=== PATIENT | female | born 1985 | race Caucasian/White ===

== ENCOUNTER → 2018-09-20 | Outpatient (CLI) | payer BC ==
[2018-09-20 10:57] LABS: Basophils % (A) 0 %; Eosinophils # (A) 0.1 k/uL (0-0.7); Eosinophils % (A) 1 %; HGB 12.1 gm/dL (11.4-16.0); Lymphocytes # (A) 1.8 k/uL (1.0-4.8); Lymphocytes % (A) 33 %; MCH 28.2 pg (25.0-35.0); MCHC 31.7 g/dL (31.0-37.0); MCV 88.8 fL (80.0-100.0); Mean Platelet Volume 6.7; Monocytes # (A) 0.2 k/uL (0-1.0); Monocytes % (A) 5 %; Neutrophils # (A) 3.2 k/uL (1.3-7.7); Neutrophils % (A) 60 %; Platelet Count 247 k/uL (150-450); RBC 4.28 m/uL (3.80-5.40); RDW 12.8 % (11.5-15.5); WBC 5.4 k/uL (3.8-10.6)
[2018-09-20 12:11] LABS: Erythrocyte Sedimentation Rate 8 mm/hr (0-20)
[2018-09-20 16:21] LABS: Protein, Total 6.5 g/dL (6.2-8.2); Rheumatoid Factor 8 IU/mL (0-15); Streptolysin O Ab(ASO) 60 IU/mL (0-200)
[2018-09-20 16:33] LABS: Cyclic Citrullinated Pep IgG NEGATIVE (NEGATIVE)
[2018-09-20 16:48] LABS: Parathyroid Hormone Intact 61.1 pg/mL (14.0-72.0)
[2018-09-20 17:42] LABS: ALT 15 U/L (8-44); AST 18 U/L (13-35); Albumin/Globulin Ratio 1.91 (1.20-2.10); Alkaline Phosphatase 48 U/L (41-126); C Reactive Protein <0.4 mg/dL (0.0-0.8); Calcium 9.4 mg/dL (8.7-10.3); Carbon Dioxide 25.6 mmol/L (21.6-31.8); Chloride 107 mmol/L (96-109); Creatine Kinase 64 U/L (26-186); Globulin 2.3 g/dL (1.6-3.3); Glucose 93 mg/dL (70-110); LDH 156 U/L (120-246); Phosphorus 2.9 mg/dL (2.4-5.1); Potassium 4.4 mmol/L (3.5-5.5); Sodium 144 mmol/L (135-145); Total Bilirubin 0.5 mg/dL (0.3-1.2); Total Protein 6.7 g/dL (6.2-8.2); Uric Acid 4.2 mg/dL (2.9-7.7)
[2018-09-21 04:19] LABS: Angiotensin-1 Converting Enz. 19 U/L (8-52)
[2018-09-21 11:11] LABS: Lyme IgG/IgM 0.1 Index
[2018-09-21 11:13] LABS: Albumin 3.78 g/dL (3.80-4.90)
[2018-09-21 12:12] LABS: HLA B27 NEGATIVE
[2018-09-21 14:11] LABS: Hepatits C Virus RNA Not detected (Not detected); Hepatits C Virus RNA, Quant <12 IU/mL (<12); LOG HCV IU/mL <1.08 (<1.08)
[2018-09-21 16:32] LABS: Vitamin D, 1, 25-Dihydroxy 56 pg/mL (20 - 79)
[2018-09-24 09:37] LABS: Vit B1(Thiamine) 48 ug/L (38-122)
== END | disposition home or self-care (01) ==
LOC: LABWHC1 09:59
PROVIDERS: ATTEND Physical Medicine & Rehabilitation
DX: R20.2 Paresthesia of skin (principal)
CPT/HCPCS: 36415; 80053; 82164; 82306; 82550; 82553; 82607; 82652; 83516; 83520; 83615; 83970; 84100; 84165; 84207; 84425; 84439; 84443; 84550; 85025; 85652; 86038; 86060; 86140; 86200; 86235; 86431; 86618; 86812; 87522

== ENCOUNTER 2018-10-19 22:58 | Emergency (ER) | payer BC ==
[2018-10-19 23:18] VITALS: BP 128/78; PULSE 89; RESP 16; TEMP 98.3
--- NOTE | 2018-10-19 23:32 | ED ---
General Adult HPI - General Chief complaint: Eye Problems Stated complaint: [facility] Time Seen by Provider: 10/19/18 23:22 Source: patient, RN notes reviewed Mode of arrival: ambulatory Limitations: no limitations - History of Present Illness Initial comments: 33-year-old female presents to the emergency department for a chief complaint of bilateral eye redness. Patient states this started yesterday. Patient states she woke up today and her eyes were crusted shut. Patient states she believes she has pink eye. 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 Patient states she does have minor irritation in the bilateral eyes and is sometimes having a burning pain. She denies any visual changes besides blurry vision when she has a film on her eye. No fevers. No other symptoms. Denies any significant eye pain. No pain with movement of the eyes. Patient has no other complaints at this time including shortness of breath, chest pain, abdominal pain, nausea or vomiting, headache, or visual changes. - Related Data Previous Rx's Medication Instructions Recorded Nitrofurantoin Monohyd/M-Cryst 100 mg PO Q12HR #14 cap 02/26/15 [Macrobid] Phenazopyridine [Pyridium] 200 mg PO TID PRN #6 tablet 02/26/15 Erythromycin Ophth Oint [Romycin 1 applic BOTH EYES QID 7 Days gm 10/19/18 Ophth Oint] Allergies Allergy/AdvReac Type Severity Reaction Status Date / Time latex Allergy Rash/Hives Verified 10/19/18 23:18 Review of Systems ROS Statement: Those systems with pertinent positive or pertinent negative responses have been documented in the HPI. ROS Other: All systems not noted in ROS Statement are negative. Past Medical History Past Medical History: No Reported History History of Any Multi-Drug Resistant Organisms: None Reported Past Surgical History: Section Past Psychological History: No Psychological Hx Reported Smoking Status: Never smoker Past Alcohol Use History: None Reported Past Drug Use History: None Reported General Exam Limitations: no limitations General appearance: alert, in no apparent distress Head exam: Present: atraumatic, normocephalic, normal inspection Eye exam: Present: PERRL, EOMI, conjunctival injection (erythematous conjunctiva to bilateral eyes with purulent drainage). Absent: normal appearance, scleral icterus, nystagmus, periorbital swelling (no edema or erythema to periorbital structures), periorbital tenderness ENT exam: Present: normal exam, mucous membranes moist Neck exam: Present: normal inspection, full ROM. Absent: tenderness, meningismus, lymphadenopathy Respiratory exam: Present: normal lung sounds bilaterally. Absent: respiratory distress, wheezes, rales, rhonchi, stridor Cardiovascular Exam: Present: regular rate, normal rhythm, normal heart sounds. Absent: systolic murmur, diastolic murmur, rubs, gallop, clicks GI/Abdominal exam: Present: soft, normal bowel sounds. Absent: distended, tenderness, guarding, rebound, rigid Neurological exam: Present: alert, oriented X3, CN II-XII intact Psychiatric exam: Present: normal affect, normal mood Course Vital Signs 10/19/18 23:16 Temperature 98.3 F Pulse Rate 89 Respiratory 16 Rate Blood Pressure 128/78 O2 Sat by Pulse 98 Oximetry Medical Decision Making - Medical Decision Making Erythema noted to bilateral conjunctiva. Patient states these crusted earlier today. Burning pain without significant eye pain. No pain extraocular motion. No erythema or edema noted to the periorbital structures. Patient denies any visual changes besides blurriness when she has a film on her eyes. Patient works in a school and is exposed to many children. Patient will be treated with erythromycin ointment. She'll follow up with primary care in 1-2 days. Will return here if she has any worsening symptoms. Disposition Clinical Impression: Conjunctivitis Disposition: HOME SELF-CARE Condition: Good Instructions (If sedation given, give patient instructions): Conjunctivitis (ED ) Additional Instructions: Please use antibiotic ointment as directed. Do not wear contacts. Follow-up with longitudinal float operator in one to 2 days. Return to the emergency department if you have any worsening symptoms. Prescriptions: Erythromycin Ophth Oint [Romycin Ophth Oint] 1 applic BOTH EYES QID 7 Days gm Is patient prescribed a controlled substance at d/c from ED?: No Referrals: Aren Davidson DO [Primary Care Provider] - 1-2 days Aaron Flynn MD [STAFF PHYSICIAN] - 1-2 days Time of Disposition: 23:47
== END 2018-10-19 23:55 | disposition home or self-care (01) ==
LOC: EC 22:58
DX: H10.9 Unspecified conjunctivitis (principal); Z91.040 Latex allergy status
CPT/HCPCS: 99282

== ENCOUNTER 2022-06-11 10:53 | Emergency (ER) | payer BC ==
[2022-06-11] MEDS ORDERED: methylPREDNISolone SOD SUCCI 125 MG/2 ML VIAL IM ONE (11:10)
[2022-06-11] MEDS ORDERED: KETOROLAC 15 MG/ML 1 ML VIAL IVP STA (11:11)
[2022-06-11] MEDS ORDERED: SODIUM CHLORIDE 0.9% 1,000 ML IV STA (11:13)
[2022-06-11] MEDS ORDERED: methylPREDNISolone SOD SUCCI 125 MG/2 ML VIAL IV STA (11:13)
[2022-06-11] MEDS ORDERED: ORPHENADRINE 30 MG/ML 2 ML VIAL IVP STA (11:13)
--- NOTE | 2022-06-11 11:21 | ED ---
Back Pain HPI - General Chief Complaint: Back Pain/Injury Stated Complaint: back pain, congestion Time Seen by Provider: 06/11/22 11:03 Source: patient Limitations: no limitations - History of Present Illness Initial Comments: Patient is an otherwise healthy 36-year-old female who presents to the emergency department with a chief complaint of back pain. Patient states she has had a sinus infection for the past 3 days with fever and productive cough. Patient states she had a coughing fit yesterday while laying in bed which causes a pop in her lower back, inducing significant pain. Patient reports lower back pain with radiation of pain to the bilateral thighs. Twisting of the torso and walking worsens the pain. Taking Motrin, last dose at 4 AM with little relief. She also reports tingling down her bilateral legs. Denies numbness and leg weakness. Denies numbness and tingling in the groin and buttock region. Denies loss of bowel and bladder function. States she has never had an issue with her back before. Denies chest pain and shortness of breath. - Related Data Previous Rx's Medication Instructions Recorded Nitrofurantoin Monohyd/M-Cryst 100 mg PO Q12HR #14 cap 02/26/15 [Macrobid] Phenazopyridine [Pyridium] 200 mg PO TID PRN #6 tablet 02/26/15 Erythromycin Ophth Oint [Romycin 1 applic BOTH EYES QID 7 Days gm 10/19/18 Ophth Oint] Cyclobenzaprine [Flexeril] 5 mg PO BID PRN #10 tablet 06/11/22 Ibuprofen [Motrin] 800 mg PO Q8H PRN #28 tab 06/11/22 predniSONE 50 mg PO DAILY #5 tablet 06/11/22 Allergies Allergy/AdvReac Type Severity Reaction Status Date / Time latex Allergy Rash/Hives Verified 06/11/22 10:56 Review of Systems ROS Statement: Those systems with pertinent positive or pertinent negative responses have been documented in the HPI. ROS Other: All systems not noted in ROS Statement are negative. Past Medical History Past Medical History: No Reported History History of Any Multi-Drug Resistant Organisms: None Reported Past Surgical History: Section Past Psychological History: No Psychological Hx Reported Past Alcohol Use History: None Reported Past Drug Use History: None Reported General Exam Limitations: no limitations General appearance: alert, in distress (pain ) Head exam: Present: atraumatic, normocephalic, normal inspection Respiratory exam: Present: normal lung sounds bilaterally. Absent: respiratory distress, wheezes, rales, rhonchi, stridor Cardiovascular Exam: Present: regular rate, normal rhythm, normal heart sounds. Absent: systolic murmur, diastolic murmur, rubs, gallop, clicks Extremities exam: Present: normal inspection, full ROM, normal capillary refill. Absent: tenderness, calf tenderness Back exam: Present: vertebral tenderness (lower lumbar and sacral). Absent: muscle spasm, paraspinal tenderness Neurological exam: Present: alert, oriented X3, CN II-XII intact Psychiatric exam: Present: normal affect, normal mood Skin exam: Present: warm, dry, intact, normal color. Absent: rash Course Vital Signs 06/11/22 06/11/22 10:56 12:55 Temperature 100.3 F H 100.1 F H Pulse Rate 120 H 108 H Respiratory 16 185 H Rate Blood Pressure 112/68 113/71 O2 Sat by Pulse 100 99 Oximetry Medical Decision Making - Medical Decision Making This is a 36-year-old female presenting with back pain and sinus infection. Febrile at 100.3F. Also tachycardic at 120 which is likely due to pain. Patient has tenderness of the lower lumbar and sacral vertebrae. No symptoms or signs of cauda equina. X-ray of the lumbosacral spine was obtained which shows no evidence of fracture or other acute process. Chest x-ray negative for acute process. COVID-19 is detected. Patient given Toradol, Solu-Medrol, Norflex. On reevaluation patient states the pain has gone away and is only a pressure sensation now. Patient has no chest pain or shortness of breath, no hypoxia, no fever, no wheezing. She will be discharged with Motrin 800 and Flexeril. I will also send her home with 5 days of prednisone for radicular symptoms. Dr. Dominguez is my attending. - Lab Data Lab Results 06/11/22 06/11/22 Range/Units 11:28 11:28 Coronavirus (PCR) Detected A (Not Detectd) Influenza Type A RNA Not Detected (Not Detectd) Influenza Type B (PCR) Not Detected (Not Detectd) Disposition Clinical Impression: Mechanical back pain, Lumbar radiculopathy, COVID-19 Disposition: HOME SELF-CARE Condition: Good Instructions (If sedation given, give patient instructions): Acute Low Back Pain (ED), COVID-19 (Coronavirus Disease 2019) (ED) Additional Instructions: Take medication as directed. Do not drink alcohol or operate machinery taking Flexeril as it can make you sleepy. Quarantine home for 5 days. Follow up with her primary care provider in one to 2 days. Return to the emergency department if you experience new, concerning, or worsening symptoms. Prescriptions: Cyclobenzaprine [Flexeril] 5 mg PO BID PRN #10 tablet PRN Reason: Muscle Spasm Ibuprofen [Motrin] 800 mg PO Q8H PRN #28 tab PRN Reason: Pain predniSONE 50 mg PO DAILY #5 tablet Is patient prescribed a controlled substance at d/c from ED?: No Referrals: Aren Davidson DO [Primary Care Provider] - 1-2 days
--- NOTE | 2022-06-11 11:31 | XR ---
EXAMINATION TYPE: XR chest 2V DATE OF EXAM: 06/11/2022 COMPARISON: NONE HISTORY: Productive cough. TECHNIQUE: Frontal and lateral views of the chest are obtained. FINDINGS: There is no suspicious focal air space opacity, pleural effusion, or pneumothorax seen. T he cardiac silhouette size is within normal limits. The osseous structures are intact. IMPRESSION: No acute pulmonary process.
--- NOTE | 2022-06-11 11:32 | XR ---
EXAMINATION TYPE: XR lumbosacral spine min 4V DATE OF EXAM: 06/11/2022 CLINICAL HISTORY: Injury with pain going down both legs TECHNIQUE: Frontal, lateral, and oblique images of the lumbar spine are obtained. COMPARISON: None FINDINGS: There are 5 lumbar type vertebral bodies identified. The lumbar spine shows straightened alignment without evidence of acute fracture or dislocation. Vertebral body heights and disk space he ights are within normal limits. The oblique images appear within normal limits. The overlying soft tissue appears unremarkable. IMPRESSION: No acute fracture or dislocation is seen in the lumbar spine.
[2022-06-11 12:58] VITALS: BP 113/71; PULSE 108; RESP 185; TEMP 100.1
== END 2022-06-11 12:58 | disposition home or self-care (01) ==
LOC: EC 10:53
DX: U07.1 COVID-19 (principal); M54.16 Radiculopathy, lumbar region; Z91.040 Latex allergy status
CPT/HCPCS: 87502; 87635; 72110; 71046; 99283; 96374; 96375; 96361; J2360; J2930; J1885

== ENCOUNTER 2023-12-23 02:07 | Emergency (ER) | payer BC ==
[2023-12-23 02:40] VITALS: RESP 18; TEMP 97.9
[2023-12-23 02:53] LABS: Basophils % (A) 1 %; Eosinophils # (A) 0.1 k/uL (0-0.7); Eosinophils % (A) 1 %; HCT 45.5 % (34.0-46.0); HGB 14.5 gm/dL (11.4-16.0); Lymphocytes % (A) 28 %; MCH 27.7 pg (25.0-35.0); MCHC 31.8 g/dL (31.0-37.0); MCV 87.1 fL (80.0-100.0); Mean Platelet Volume 7.3; Monocytes # (A) 0.6 k/uL (0-1.0); Monocytes % (A) 8 %; Neutrophils # (A) 4.4 k/uL (1.3-7.7); Neutrophils % (A) 60 %; Platelet Count 241 k/uL (150-450); RBC 5.22 m/uL (3.80-5.40); RDW 12.7 % (11.5-15.5); WBC 7.3 k/uL (3.8-10.6)
[2023-12-23] MEDS: ONDANSETRON 4 MG/2 ML VIAL IVP STA (02:55)
[2023-12-23] MEDS: SODIUM CHLORIDE 0.9% 1,000 ML IV STA (02:56)
--- NOTE | 2023-12-23 03:08 | ED ---
General Adult HPI - General Chief complaint: Nausea/Vomiting/Diarrhea Stated complaint: Vomiting Time Seen by Provider: 12/23/23 02:38 Source: patient Mode of arrival: ambulatory Limitations: no limitations - History of Present Illness Initial comments: 58-year-old female presented to ED with complaints of nausea and nonbloody emesis over the past 2 days. Denies fever or chills. Denies URI symptoms. Denies abdominal pain. Denies changes in bowel or bladder habits. No chest pain or shortness of breath. No other complaints at this time. - Related Data Previous Rx's Medication Instructions Recorded Nitrofurantoin Monohyd/M-Cryst 100 mg PO Q12HR #14 cap 02/26/15 [Macrobid] Phenazopyridine [Pyridium] 200 mg PO TID PRN #6 tablet 02/26/15 Erythromycin Ophth Oint [Romycin 1 applic BOTH EYES QID 7 Days gm 10/19/18 Ophth Oint] Cyclobenzaprine [Flexeril] 5 mg PO BID PRN #10 tablet 06/11/22 Ibuprofen [Motrin] 800 mg PO Q8H PRN #28 tab 06/11/22 predniSONE 50 mg PO DAILY #5 tablet 06/11/22 Cephalexin [Keflex] 500 mg PO Q6HR 7 Days #28 cap 12/23/23 Ondansetron Odt [Zofran Odt] 4 mg PO Q8HR PRN #10 tab 12/23/23 Allergies Allergy/AdvReac Type Severity Reaction Status Date / Time latex Allergy Rash/Hives Verified 12/23/23 02:27 Review of Systems ROS Statement: Those systems with pertinent positive or pertinent negative responses have been documented in the HPI. ROS Other: All systems not noted in ROS Statement are negative. Past Medical History Past Medical History: No Reported History History of Any Multi-Drug Resistant Organisms: None Reported Past Surgical History: Section Past Psychological History: No Psychological Hx Reported Smoking Status: Never smoker Past Alcohol Use History: None Reported Past Drug Use History: Marijuana General Exam Limitations: no limitations General appearance: alert, in no apparent distress Eye exam: Present: normal appearance Neck exam: Present: normal inspection Respiratory exam: Present: normal lung sounds bilaterally Cardiovascular Exam: Present: regular rate, normal rhythm GI/Abdominal exam: Present: soft, normal bowel sounds, other (No CVA tenderness to percussion bilaterally.). Absent: distended, tenderness, guarding, rebound, rigid Neurological exam: Present: alert, oriented X3 Skin exam: Present: warm, dry Course Vital Signs 12/23/23 02:24 Temperature 97.9 F Pulse Rate 87 Respiratory 18 Rate Blood Pressure 109/76 O2 Sat by Pulse 97 Oximetry Medical Decision Making - Medical Decision Making Was pt. sent in by a medical professional or institution (, PA, REGULATORY MANAGER, urgent care, hospital, or [place] health care facility...) When possible be specific @ -No Did you speak to anyone other than the patient for history (EMS, parent, family, police, friend...)? What history was obtained from this source @ -No Did you review nursing and triage notes (agree or disagree)? Why? @ -I reviewed and agree with nursing and triage notes Were old charts reviewed (outside hosp., previous admission, EMS record, old EKG, old radiological studies, urgent care reports/EKG's, [place] health care facility records)? Report findings @ -No old charts were reviewed Differential Diagnosis (chest pain, altered mental status, abdominal pain women, abdominal pain men, vaginal bleeding, weakness, fever, dyspnea, syncope, headache, dizziness, GI bleed, back pain, seizure, CVA, palpatations, mental h ealth, musculoskeletal)? @ -Differential Abdominal Pain Women: Appendicitis, Cholecystitis, diverticulosis, ischemic bowel, pancreatitis, hepatitis, UTI, gastroenteritis, AAA, incarcerated hernia, bowel obstruction, constipation, inflammatory bowel, hepatitis, peptic ulcer disease, splenic infarction, perforated viscus, vulvitis, ovarian torsion, PID, kidney stone, placenta abruption, this is not meant to be an all-inclusive list EKG interpreted by me (3pts min.). @ -None X-rays interpreted by me (1pt min.). @ -None done CT interpreted by me (1pt min.). @ -None done U/S interpreted by me (1pt. min.). @ -None done What testing was considered but not performed or refused? (CT, X-rays, U/S, labs)? Why? @ -None What meds were considered but not given or refused? Why? @ -None Did you discuss the management of the patient with other professionals (professionals i.e. , ANNEL, REGULATORY MANAGER, lab, RT, psych nurse, social sciences research scientist, offset press operator apprentice, teacher, transportation officer, field case manager)? Give summary @ -No Was smoking cessation discussed for >3mins.? @ -No Was critical care preformed (if so, how long)? @ -No Were there social determinants of health that impacted care today? How? (Homelessness, low income, unemployed, alcoholism, drug addiction, transportation, low edu. Level, literacy, decrease access to med. care, assisted, rehab)? @ -No Was there de-escalation of care discussed even if they declined (Discuss DNR or withdrawal of care, Hospice)? DNR status @ -No What co-morbidities impacted this encounter? (DM, HTN, Smoking, COPD, CAD, Cancer, CVA, ARF, Chemo, Hep., AIDS, mental health diagnosis, sleep apnea, morbid obesity)? @ -None Was patient admitted / discharged? Hospital course, mention meds given and route, prescriptions, significant lab abnormalities, going to OR and other pertinent info. @ -Discharge 38-year-old female presents to the ED with onset of nausea and vomiting for the last 2 days. No abdominal pain. No change in bowel habits. No urinary symptoms. Laboratory studies reviewed. Labs including CBC CMP urine hCG unremarkable. UA does show evidence of urinary tract infection. Patient provided IV fluids and Zofran here with significant improvement of symptoms. Discharged home in stable condition with prescription for Keflex. Urine culture was obtained. Discussed return precautions with patient who verbalized agreemen t. Undiagnosed new problem with uncertain prognosis? @ -No Drug Therapy requiring intensive monitoring for toxicity (Heparin, Nitro, Insulin, Cardizem)? @ -No Were any procedures done? @ -No Diagnosis/symptom? @ -Nausea and vomiting, UTI Acute, or Chronic, or Acute on Chronic? @ -Acute Uncomplicated (without systemic symptoms) or Complicated (systemic symptoms)? @ -Uncomplicated Side effects of treatment? @ -No Exacerbation, Progression, or Severe Exacerbation? @ -No Poses a threat to life or bodily function? How? (Chest pain, USA, PR, pneumonia, PE, COPD, DKA, ARF, appy, cholecystitis, CVA, Diverticulitis, Homicidal, Suicidal, threat to staff... and all critical care pts) @ -Unlikely - Lab Data Result diagrams: 12/23/23 02:42 12/23/23 02:42 Lab Results 12/23/23 12/23/23 12/23/23 Range/Units 02:42 02:42 02:42 WBC 7.3 (3.8-10.6) k/uL RBC 5.22 (3.80-5.40) m/uL Hgb 14.5 (11.4-16.0) gm/dL Hct 45.5 (34.0-46.0) % MCV 87.1 (80.0-100.0) fL MCH 27.7 (25.0-35.0) pg MCHC 31.8 (31.0-37.0) g/dL RDW 12.7 (11.5-15.5) % Plt Count 241 (150-450) k/uL MPV 7.3 Neutrophils % 60 % Lymphocytes % 28 % Monocytes % 8 % Eosinophils % 1 % Basophils % 1 % Neutrophils # 4.4 (1.3-7.7) k/uL Lymphocytes # 2.0 (1.0-4.8) k/uL Monocytes # 0.6 (0-1.0) k/uL Eosinophils # 0.1 (0-0.7) k/uL Basophils # 0.0 (0-0.2) k/uL Sodium (137-145) mmol/L Potassium (3.5-5.1) mmol/L Chloride (98-107) mmol/L Carbon Dioxide (22-30) mmol/L Anion Gap mmol/L BUN (7-17) mg/dL Creatinine (0.52-1.04) mg/dL Est GFR (CKD-EPI)AfAm (>60 ml/min/1.73 sqM) Est GFR (CKD-EPI)NonAf (>60 ml/min/1.73 sqM) Glucose (74-99) mg/dL Calcium (8.4-10.2) mg/dL Total Bilirubin (0.2-1.3) mg/dL AST (14-36) U/L ALT (4-34) U/L Alkaline Phosphatase (38-126) U/L Total Protein (6.3-8.2) g/dL Albumin (3.5-5.0) g/dL Urine Color Yellow Urine Appearance Cloudy H (Clear) Urine pH 6.0 (5.0-8.0) Ur Specific [place] 1.028 (1.001-1.035) Urine Protein Trace H (Negative) Urine Glucose (UA) Negative (Negative) Urine Ketones 2+ H (Negative) Urine Blood Negative (Negative) Urine Nitrite Negative (Negative) Urine Bilirubin Negative (Negative) Urine Urobilinogen 2.0 (<2.0) mg/dL Ur Leukocyte Esterase Large H (Negative) Urine RBC 12 H (0-5) /hpf Urine WBC 34 H (0-5) /hpf Urine WBC Clumps Occasional H (None) /hpf Ur Squamous Epith Cells 20 H (0-4) /hpf Amorphous Sediment Rare H (None) /hpf Urine Bacteria Rare H (None) /hpf Urine Mucus Moderate H (None) /hpf Urine HCG, Qual Not Detected (Not Detectd) Influenza Type A (PCR) (Not Detectd) Influenza Type B (PCR) (Not Detectd) RSV (PCR) (Not Detectd) SARS-CoV-2 (PCR) (Not Detectd) 12/23/23 12/23/23 Range/Units 02:42 02:42 WBC (3.8-10.6) k/uL RBC (3.80-5.40) m/uL Hgb (11.4-16.0) gm/dL Hct (34.0-46.0) % MCV (80.0-100.0) fL MCH (25.0-35.0) pg MCHC (31.0-37.0) g/dL RDW (11.5-15.5) % Plt Count (150-450) k/uL MPV Neutrophils % % Lymphocytes % % Monocytes % % Eosinophils % % Basophils % % Neutrophils # (1.3-7.7) k/uL Lymphocytes # (1.0-4.8) k/uL Monocytes # (0-1.0) k/uL Eosinophils # (0-0.7) k/uL Basophils # (0-0.2) k/uL Sodium 141 (137-145) mmol/L Potassium 4.0 (3.5-5.1) mmol/L Chloride 105 (98-107) mmol/L Carbon Dioxide 24 (22-30) mmol/L Anion Gap 12 mmol/L BUN 16 (7-17) mg/dL Creatinine 0.96 (0.52-1.04) mg/dL Est GFR (CKD-EPI)AfAm 86 (>60 ml/min/1.73 sqM) Est GFR (CKD-EPI)NonAf 75 (>60 ml/min/1.73 sqM) Glucose 105 H (74-99) mg/dL Calcium 9.3 (8.4-10.2) mg/dL Total Bilirubin 0.6 (0.2-1.3) mg/dL AST 24 (14-36) U/L ALT 19 (4-34) U/L Alkaline Phosphatase 58 (38-126) U/L Total Protein 8.0 (6.3-8.2) g/dL Albumin 4.8 (3.5-5.0) g/dL Urine Color Urine Appearance (Clear) Urine pH (5.0-8.0) Ur Specific [place] (1.001-1.035) Urine Protein (Negative) Urine Glucose (UA) (Negative) Urine Ketones (Negative) Urine Blood (Negative) Urine Nitrite (Negative) Urine Bilirubin (Negative) Urine Urobilinogen (<2.0) mg/dL Ur Leukocyte Esterase (Negative) Urine RBC (0-5) /hpf Urine WBC (0-5) /hpf Urine WBC Clumps (None) /hpf Ur Squamous Epith Cells (0-4) /hpf Amorphous Sediment (None) /hpf Urine Bacteria (None) /hpf Urine Mucus (None) /hpf Urine HCG, Qual (Not Detectd) Influenza Type A (PCR) Not Detected (Not Detectd) Influenza Type B (PCR) Not Detected (Not Detectd) RSV (PCR) Not Detected (Not Detectd) SARS-CoV-2 (PCR) Not Detected (Not Detectd) Disposition Clinical Impression: Nausea and vomiting, UTI (urinary tract infection) Disposition: HOME SELF-CARE Condition: Good Instructions (If sedation given, give patient instructions): Acute Nausea and Vomiting (ED) Additional Instructions: Please return to the Emergency Department if symptoms worsen or any other concerns. Please follow-up with your PCP. Prescriptions: Cephalexin [Keflex] 500 mg PO Q6HR 7 Days #28 cap Ondansetron Odt [Zofran Odt] 4 mg PO Q8HR PRN #10 tab PRN Reason: Nausea Is patient prescribed a controlled substance at d/c from ED?: No Referrals: Aren Davidson DO [Primary Care Provider] - 1-2 days Time of Disposition: 04:18
[2023-12-23 03:11] LABS: ALT 19 U/L (4-34); AST 24 U/L (14-36); African American GFR (CKD) 86 (>60 ml/min/1.73 sqM); Albumin 4.8 g/dL (3.5-5.0); Alkaline Phosphatase 58 U/L (38-126); Anion Gap 12 mmol/L; Blood Urea Nitrogen 16 mg/dL (7-17); Calcium 9.3 mg/dL (8.4-10.2); Carbon Dioxide 24 mmol/L (22-30); Chloride 105 mmol/L (98-107); Glucose 105 mg/dL (74-99); Non-African American GFR(CKD) 75 (>60 ml/min/1.73 sqM); Sodium 141 mmol/L (137-145); Total Bilirubin 0.6 mg/dL (0.2-1.3)
[2023-12-23 03:57] LABS: Amorphous Sediment,Urine Rare /hpf; Appearance,Urine Cloudy (Clear); Bacteria,Urine Rare /hpf; Bilirubin,Urine Negative (Negative); Blood,Urine Negative (Negative); Color,Urine Yellow; Glucose,Urine (UA) Negative (Negative); Ketones,Urine 2+ (Negative); Leukocyte Esterase,Urine Large (Negative); Mucus,Urine Moderate /hpf; Nitrite,Urine Negative (Negative); Protein,Urine Trace (Negative); RBC,Urine 12 /hpf (0-5); Specific Gravity,Urine 1.028 (1.001-1.035); Squamous Epithelial Cell,Urine 20 /hpf (0-4); WBC,Urine 34 /hpf (0-5)
[2023-12-23 05:32] VITALS: BP 115/65; PULSE 69
== END 2023-12-23 04:49 | disposition home or self-care (01) ==
LOC: EC 02:07
DX: N39.0 Urinary tract infection, site not specified (principal); Z91.040 Latex allergy status; Z11.52 Encounter for screening for COVID-19
CPT/HCPCS: 36415; 80053; 85025; 81001; 81025; 87086; 87636; 99284; 96374; 96361; J2405